=== PATIENT | male | born 1965 | race Caucasian/White ===

== ENCOUNTER 2016-09-06 18:18 | Emergency (ER) | payer SELFPAY ==
[~2016-09-06] VITALS: Ht 195.6 cm; Wt 106.4 kg
[~2016-09-06 18:18] MED LIST: ADDE30TA PO; AMOX875T PO; CIPR750T10 PO; CORTIS10A LEFT EAR; OXYC30TA PO; TRAM50 PO
[2016-09-06 18:20] VITALS: BP 169/104; PULSE 94; RESP 16; TEMP 99.9; O2SAT 97
[2016-09-06] MEDS ORDERED: TRAM50TA PO (18:48)
[2016-09-06] MEDS ORDERED: CIPR500T2 PO (18:48)
[2016-09-06] MEDS ORDERED: CIPR0.3S RIGHT EAR (18:48)
--- NOTE | 2016-09-06 18:54 | PD ---
HPI Chief Complaint: ENT Complaint Time Seen by Provider: 18:51 Travel History International Travel<30 days: No Contact w/Intl Traveler<30days: No Traveled to known affect area: No History of Present Illness HPI 50-year-old male presents to the emergency room for evaluation of right ear pain , decreased hearing, drainage, and swelling for the past 2 days. Pain is significant. Radiates down his entire neck and into his jaw. Patient has been taking amoxicillin variably since onset of symptoms without relief. He has also taken ibuprofen and applied earwax softening solution last night. Reports it started draining yesterday. Denies fever, nausea, and vomiting. He reports feeling chilled today. Denies swimming recently. PFSH Past Medical History Blood Disorders: No Anxiety: Yes Depression: Yes Cancer: No Cardiovascular Problems: Yes (HTN) Diabetes: No Diminished Hearing: No Endocrine: No Gastrointestinal Disorders: No Glaucoma: No Genitourinary: No Hepatitis: No Hiatal Hernia: No Hypertension: Yes Immune Disorder: No Implanted Vascular Access Dvce: Yes Medical other: No Musculoskeletal: No Neurologic: No Psychiatric: Yes Reproductive: No Respiratory: No Immunizations Current: Yes Thyroid Disease: No Influenza Vaccination: No Past Surgical History Body Medical Devices: EXTERNAL FIXATOR TO LUE Pacemaker: No Other Surgery: No Social History Alcohol Use: No (denies) Tobacco Use: Yes (1 PPD) Substance Use: Yes (marijuana and oxy) Allergies-Medications (Allergen,Severity, Reaction): Coded Allergies: Lortab (Verified Adverse Reaction, Intermediate, NAUSEA, 09/06/16) Reported Meds & Prescriptions Reported Meds & Active Scripts Active Tramadol (Tramadol HCl) 50 Mg Tab 50 Mg PO Q6H PRN Ciprofloxacin (Ciprofloxacin HCl) 500 Mg Tab 500 Mg PO Q12HR 7 Days Ciprodex Otic Drops (Ciprofloxacin-Dexamethasone Otic Drops) 0.3-0.1% Susp 4 Drop RIGHT EAR Q12HR Review of Systems Except as stated in HPI: all other systems reviewed are Neg Physical Exam Narrative GENERAL: Well-nourished, well-developed male in no acute distress. Afebrile. Ambulatory. SKIN: Warm and dry. HEAD: Normocephalic. EYES: No scleral icterus. No injection or drainage. EARS: Bilateral pinnae appear within normal limits. Right external ear canal is extremely swollen with purulent, yellow drainage. Extreme tenderness to palpation. Positive tug test. Preauricular edema. No mastoid tenderness or postauricular edema. Left tympanic membrane without erythema, dullness or perforation. NECK: Supple, trachea midline. No JVD or lymphadenopathy. DENTAL: No loose or chipped teeth. No malocclusion. Data Data Last Documented VS Vital Signs Date Time Temp Pulse Resp B/P Pulse Ox O2 Delivery O2 Flow Rate FiO2 09/06/16 18:20 99.9 94 16 169/104 97 Orders Wound Care (09/06/16 18:50) MDM Medical Decision Making Medical Screen Exam Complete: Yes Emergency Medical Condition: Yes Medical Record Reviewed: Yes Differential Diagnosis Eustachian tube dysfunction versus Otitis externa versus otitis media Narrative Course 50-year-old male presents to the emergency room for evaluation of right ear pain , edema, drainage, and decreased hearing for the past 2 days. He denies swimming recently. Physical exam reveals right external ear canal is extremely swollen with purulent, yellow drainage. Tympanic membrane unable to be visualized. There is extreme tenderness to palpation. Preauricular edema. No mastoid tenderness or postauricular edema. Given extent of edema and infection , patient will be treated with topical and oral antibiotics. Ear wick was placed in the emergency room. He was discharged with prescriptions for Ciprodex , ciprofloxacin, and tramadol. Told to follow up with primary care physician or return to the emergency room for worsening symptoms. He understands and agrees to this plan. Diagnosis Primary Impression: Right otitis externa Qualified Code: H60.311 - Acute diffuse otitis externa of right ear Referrals: Primary Care Physician Patient Instructions: General Instructions, Otitis Externa (ED) Additional Instructions: Rest and drink plenty of fluids. Apply eardrops twice daily for 7 days. Remove ear wick after 24 hours and apply a new one; these can be purchased [id number]. You no longer need one once ear canal swelling subsides. Take ciprofloxacin as directed, until gone. Take tramadol with food as directed, as needed for pain. Apply ice to the affected area for 20 minutes at a time, as needed for pain and swelling. Follow-up with a primary care physician. Return to the emergency room for worsening symptoms. Med/Other Pt SpecificInfo: Prescription(s) given Scripts Tramadol 50 Mg Tab50 Mg PO Q6H PRN (PAIN) #7 TAB Ref 0 Prov:Ruthie Treviño 09/06/16 Ciprofloxacin 500 Mg [id number] Mg PO Q12HR 7 Days Ref 0 Prov:Ruthie Treviño DO 09/06/16 Ciprofloxacin-Dexamethasone Otic Drops (Ciprodex Otic Drops)0.3-0.1% Susp4 Drop RIGHT EAR Q12HR #1 BOTTLE Ref 0 Prov:TreviñoRuthie 09/06/16 Disposition: 01 DISCHARGE HOME Condition: Stable Rosy Gonzalez Sep 06, 2016 18:54
== END 2016-09-06 19:10 | disposition home or self-care (01) ==
LOC: PHEFT 18:18
DX: H60.91 Unspecified otitis externa, right ear (principal); I10 Essential (primary) hypertension; F17.210 Nicotine dependence, cigarettes, uncomplicated
CPT/HCPCS: 99282